=== PATIENT | male | born 1980 | race Caucasian/White ===

== ENCOUNTER 2023-01-23 11:55 | Outpatient (OUT) | payer OTHER, SELFPAY ==
--- NOTE | 2023-01-23 12:00 | XR_ITS ---
[address] [address] Patient Name: NIKI ROONEY MRN: [id number] date: 1980 Sex: M Assigned Patient Location: RAD Current Patient Location: [facility] Accession/Order Number: [id number] Exam Date: 01/23/2023 12:05 Report Date: 01/23/2023 12:23 At the request of: MICKI ARMSTRONG Procedure: XR cervical spine 2-3V EXAM: XR cervical spine 2-3V HISTORY: Chronic Neck Pain M54.2 COMPARISON: None. TECHNIQUE: 3 views FINDINGS: Satisfactory alignment. Maintained vertebral body heights. Multilevel endplate degenerative changes, anterior spurring and disc disease of C5-C7. No acute fracture or subluxation. Unremarkable soft tissues. XR/XR cervical spine 2-3V IMPRESSION: Degenerative changes disc disease as above. Electronically authenticated by: MAYNOR DIAZ Date: 01/23/2023 12:23
== END 2023-01-23 11:56 | disposition home or self-care (01) ==
LOC: RAD 11:55
PROVIDERS: PCP Family Medicine; Visit Provider Family Medicine
DX: M50.322 Other cervical disc degeneration at C5-C6 level (principal); M50.323 Other cervical disc degeneration at C6-C7 level
CPT/HCPCS: 72040

== ENCOUNTER 2023-02-23 10:06 | Outpatient (OUT) | payer OTHER, SELFPAY ==
[2023-02-23 10:43] LABS: Basophils Percent Auto 0.3 % (0.2-2.0); Eosinophils Absolute Auto 0.1 10^3/uL (0.0-0.7); Eosinophils Percent Auto 2.2 % (0.9-7.0); Hematocrit 37.9 % (42.0-54.0); Hemoglobin 13.1 g/dL (14.0-18.0); Immature Granulocytes Abs Auto 0.07 10^3/uL (0.00-0.03); Immature Granulocytes Pct Auto 1.2 % (0.0-0.5); Lymphocytes Absolute Auto 1.8 10^3/uL (1.2-3.8); Lymphocytes Percent Auto 29.9 % (20.5-60.0); Mean Corpuscular HGB Conc 34.6 g/dL (29.9-35.2); Mean Corpuscular Hemoglobin 31.4 pg (25.9-34.0); Mean Corpuscular Volume 90.9 fL (80.0-94.0); Monocytes Absolute Auto 0.5 10^3/uL (0.3-0.8); Monocytes Percent Auto 7.8 % (1.7-12.0); Neutrophils Absolute Auto 3.5 10^3/uL (1.4-6.5); Neutrophils Percent Auto 58.6 % (43.0-75.0); Platelet Count 147 10^3/uL (150-450); Red Blood Count 4.17 10^6/uL (4.70-6.10); Red Cell Distribution Width 12.4 % (11.0-15.0); White Blood Count 5.9 10^3/uL (4.0-11.0)
[2023-02-23 11:04] LABS: Estimated Average Glucose 120 mg/dL; Glycohemoglobin A1C 5.8 % (4.5-6.2)
[2023-02-23 12:07] LABS: Alanine Aminotransferase 35 U/L (16-63); Albumin Level 3.9 g/dL (3.4-5.0); Alkaline Phosphatase 48 U/L (46-116); Anion Gap 8.2; Aspartate Amino Transferase 19 U/L (15-37); BUN Creatinine Ratio 18.3; Bilirubin Direct 0.1 mg/dL (0.0-0.2); Bilirubin Total 0.3 mg/dL (0.2-1.0); Calcium 9.2 mg/dL (8.5-10.1); Chloride 99 mmol/L (98-107); Chol HDL Ratio 2.8; Cholesterol 156 mg/dL (<=200); Estimated GFR (African America >60 (>=60); Estimated GFR (Non-African Ame >60 (>=60); Globulin 3.9 g/dL; Glucose 95 mg/dL (74-106); HDL Cholesterol 56 mg/dL (40-60); LDL Cholesterol Calculated 84.8 mg/dL; Potassium 4.2 mmol/L (3.5-5.1); Sodium 134 mmol/L (136-145); Thyroid Stimulating Hormone 4.169 uIU/mL (0.358-3.740); Total Protein 7.8 g/dL (6.4-8.2); Triglycerides 76 mg/dL (<=150); VLDL CHOLESTEROL 15.2 mg/dL
[2023-02-23 12:14] LABS: Prostate Specific Antigen Scrn 0.74 ng/mL (<=4.00)
[2023-02-24 05:05] LABS: Testosterone 185 ng/dL (264-916)
== END 2023-02-23 10:07 | disposition home or self-care (01) ==
PROVIDERS: PCP Family Medicine; Visit Provider Family Medicine
DX: Z00.00 Encounter for general adult medical examination without abnormal findings (principal); Z12.5 Encounter for screening for malignant neoplasm of prostate
CPT/HCPCS: 36415; 80048; 80061; 80076; 83036; 84403; 84443; 85025; G0103

== ENCOUNTER 2023-04-11 13:32 | Outpatient (OUT) | payer OTHER, SELFPAY ==
--- NOTE | 2023-04-11 13:39 | XR_ITS ---
The [address] [address] Patient Name: NIKI ROONEY MRN: [id number] date: 1980 Sex: M Assigned Patient Location: RAD Current Patient Location: RAD Accession/Order Number: [id number] Exam Date: 04/11/2023 13:45 Report Date: 04/11/2023 14:38 At the request of: MICKI ARMSTRONG Procedure: XR foreign body eye EXAMINATION: XR foreign body eye HISTORY: Foreign Body Eye COMPARISON: No relevant comparison available. FINDINGS: ORBITS: Negative for a metallic foreign body. OTHER: Negative. XR/XR foreign body eye IMPRESSION: 1. No metallic foreign body within the orbits. Electronically authenticated by: SAURAV VILLEDA Date: 04/11/2023 14:38
--- NOTE | 2023-04-11 13:39 | XR_ITS ---
The [address] [address] Patient Name: NIKI ROONEY MRN: [id number] date: 1980 Sex: M Assigned Patient Location: [facility] Current Patient Location: Accession/Order Number: [id number] Exam Date: 04/11/2023 13:45 Report Date: 04/12/2023 14:58 At the request of: MICKI ARMSTRONG Procedure: XR cervical spine 2-3V EXAMINATION: XR cervical spine 2-3V HISTORY: Chronic Neck Pain COMPARISON: No relevant comparison available. FINDINGS: BONES: Straightening of the normal lordotic curvature; positioning versus muscle spasm. No fracture or spinal listhesis. No significant facet arthropathy. DISC SPACES: Mild narrowing C5-C6. Moderate narrowing C6-7. PARASPINOUS: Negative. No paraspinous abnormality is seen. OTHER: Negative. XR/XR cervical spine 2-3V IMPRESSION: 1. Grossly stable degenerative changes of the lower cervical spine. Electronically authenticated by: SAURAV VILLEDA Date: 04/12/2023 14:58
--- NOTE | 2023-04-11 14:00 | MR_ITS ---
The [address] [address] Patient Name: NIKI ROONEY MRN: [id number] date: 1980 Sex: M Assigned Patient Location: RAD Current Patient Location: [facility] Accession/Order Number: [id number] Exam Date: 04/11/2023 14:00 Report Date: 04/11/2023 15:16 At the request of: MICKI ARMSTRONG Procedure: MR cervical spine wo con MR cervical spine wo con, 04/11/2023 2:00 PM EDT INDICATION: Cervical Radiculopathy M54.12 COMPARISON: Prior x-ray dated 04/11/2023 TECHNIQUE: Multiplanar, multisequential MRI images of cervical spine were obtained with without contrast. FINDINGS: There is loss of normal physiologic cervical lordosis. The vertebral heights are relatively preserved. The cervicomedullary junction is unremarkable. No definite signal abnormality within the spinal cord is noted. There are moderate disc osteophyte complex associated with uncovertebral joint arthrosis from C3 to T1. No significant neuroforaminal narrowing or canal stenosis at the level of C2-C3 is noted. At the level of C3-C4, there is moderate bilateral neuroforaminal narrowing and no canal stenosis. At the level of C4-C5, there is mild right and severe left neuroforaminal narrowing and mild canal stenosis. At the level of C5-C6, there is severe bilateral neuroforaminal narrowing and mild canal stenosis. At the level of C6-C7, there is severe bilateral neuroforaminal narrowing and moderate canal stenosis. At the level of C7-T1, there is severe left and moderate right neuroforaminal narrowing and no canal stenosis. No definite muscular or ligamentous injury is noted. Mild mucosal thickening and retention cyst within the right maxillary sinus is noted. MR/MR cervical spine wo con IMPRESSION: Moderate degenerative changes of the cervical spine in particular at C5-C6 and C6-C7. Electronically authenticated by: SEBASTIAN FORD Date: 04/11/2023 15:16
== END 2023-04-11 13:33 | disposition home or self-care (01) ==
LOC: RAD 13:33
PROVIDERS: PCP Family Medicine; Visit Provider Family Medicine
DX: M54.2 Cervicalgia (principal); M54.12 Radiculopathy, cervical region; M51.36 Other intervertebral disc degeneration, lumbar region
CPT/HCPCS: 70030; 72040; 72141

== ENCOUNTER 2024-06-06 09:27 | Outpatient (OUT) | payer OTHER, SELFPAY ==
--- OUTSIDE RECORDS SUMMARY | 2024-06-06 09:48 | XMS_ITS | CCD ---
Author Organization [facility] Care Team Providers Care Insurance Investigator Name Role Phone DR FILIPPO ARMSTRONG Admitting Unavailable NATHANIEL, DR FILIPPO Tse Attending Unavailable NATHANIEL, DR FILIPPO Tse Primary Care Unavailable RONAL, DR SAURAV Huynh Consulting Unavailable NATHANIEL, DR FILIPPO Tse Consulting Unavailable Nathaniel GOOD, Filippo Primary Care Provider [phone] Filippo Armstrong MD Primary Care Provider Filippo Armstrong MD Unavailable FILIPPO ARMSTRONG Attending Unavailable NATHANIEL, FILIPPO Attending Unavailable SANTO GOLDMAN Attending Unavailable FILIPPO ARMSTRONG Referring Unavailable SNATO GOLDMAN Attending Unavailable NATHANIEL, FILIPPO Referring Unavailable SANTO GOLDMAN Attending Unavailable NATHANIEL, FILIPPO Referring Unavailable NATHANIEL, FILIPPO Attending Unavailable Medications Current Medications Medication Drug Class(es) Dates Sig (Normalized) Sig (Original) amitriptyline hydrochloride 25 mg oral tablet (14 sources) Tricyclic Antidepressant Start: 03-25-2020 take 1 tablet by mouth once daily as needed amitriptyline (ELAVIL) 25 mg tablet Take 25 mg by mouth nightly as needed. 0 03/25/2020 Active 24 hr amphetamine aspartate 7.5 mg / amphetamine sulfate 7.5 mg / dextroamphetamine saccharate 7.5 mg / dextroamphetamine sulfate 7.5 mg extended release oral capsule (20 sources) Central Nervous System Stimulant Start: 01-25-2024 End: 05-14-2024 take 1 tablet by mouth once daily amphetamine-dextr oamphetamine (Adderall) 30 MG tablet Indications: Attention deficit disorder (ADD) without hyperactivity Take 1 tablet (30 mg) by mouth Daily 30 tablet 02/07/2024 Active Start: 01-03-2024 End: 05-21-2024 take 1 capsule by mouth every twenty-four hours in the morning amphetamine-dextroamphetamine XR (Addera ll XR) 30 MG 24 hr capsule Indications: Attention deficit disorder (ADD) without hyperactivity Take 1 capsule (30 mg) by mouth in the morning. 30 capsule 05/21/2024 Active Start: 07-27-2023 take 1 capsule by mo uth every twenty-four hours in the morning amphetamine-dextroamphetamine XR (Addera ll XR) 30 MG 24 hr capsule Indications: Attention deficit disorder (ADD) without hyperactivity Take 1 capsule (30 mg) by mouth in the morning. 30 capsule 0 07/27/2023 Active Start: 01-23-2022 take 1 tablet by noelle th in the morning amphetamine-dextroamphetamine (Adderall) 30 MG tablet Indications: Attention deficit disorder (ADD) without hyperactivity Take 1 tablet (30 mg) by mouth in the morning. 30 tablet 0 07/09/2023 Active Start: 01-23-2022 End: 07-27-2023 take 1 capsule by mouth every twenty-four hours in the morning amphetamine-dextroamphetamine XR (Addera ll XR) 30 MG 24 hr capsule Indications: Attention deficit disorder (ADD) without hyperactivity Take 1 capsule (30 mg) by mouth in the morning. 30 capsule 0 06/27/2023 07/27/2023 Discontinued (Reorder) B-D 3CC LUER-JAYSHREE SYR 25GX1 25G X 1 3 ML misc (12 sources) Start: 08-11-2023 B-D 3CC LUER-L OK SYR 25GX1 25G X 1 3 ML misc 08/11/2023 Active baclofen 20 mg oral tablet (15 sources) gamma-Aminobuty debra Acid-ergic Agonist Start: 04-21-2024 End: 04-21-2024 take 1 tablet by mouth in the morning, then take 1 tablet by mouth in the evening, then take 1 tablet by mouth at bedtime baclofen (Lioresal) 20 MG tablet Indications: Degeneration of intervertebral disc of lumbar region with discogenic back pain and lower extremity pain Take 1 tablet (20 mg) by mouth in the morning and 1 tablet (20 mg) in the evening and 1 tablet (20 mg) before bedtime. 90 tablet 5 04/21/2024 Active take 1 tablet by noelle th in the morning, then take 1 tablet by mouth in the evening, then take 1 tablet by mouth at bedtime baclofen (Lioresal) 20 MG tablet Take 20 mg by mouth in the morning and 20 mg in the evening and 20 mg before bedtime. Active buprenorphine 8 mg / naloxone 2 mg sublingual tablet (14 sources) Partial Opioid Agonist, Opioid Antagonist buprenorphine-naloxo ne (Suboxone) 8-[address] 1 tablet under the tongue in the morning and 1 tablet before bedtime. Active buprenorphine-na loxone (SUBOXONE) 8-2 mg per SL tablet Place 1 tablet under the tongue in the morning. 0 Active furosemide 40 mg oral tablet (15 sources) Loop Diuretic Start: 04-08-2020 End: 02-05-2024 take 1 tablet by mouth once daily furosemide (Lasix) 40 MG tablet Indications: Generalized edema Take 1 tablet (40 mg) by mouth Daily 30 tablet 5 02/05/2024 Active gabapentin 800 mg oral tablet (1 source) Anti-epileptic Agent Start: 03-25-2020 take 1 tablet by mouth three times daily gabapentin (NEURONTIN) 800 mg tablet Take 800 mg by mouth 3 (three) times a day. 0 03/25/2020 Active levothyroxine sodium 0.05 mg oral tablet (13 sources) l-Thyroxine Start: 05-19-2024 take 1 tablet by mouth before mealtime levothyroxine (Synthroid, Levoxyl) 50 MCG tablet Indications: Acquired hypothyroidism (CMS/HCC) Take 1 tablet (50 mcg) by mouth in the morning. Take before meals. 30 tablet 5 05/19/2024 Active Start: 01-25-2024 take 1 tablet by noelle th before mealtime levothyroxine (Synthroid, Levoxyl) 50 MCG tablet Indications: Acquired hypothyroidism (CMS/HCC) Take 1 tablet (50 mcg) by mouth in the morning. Take before meals. 30 tablet 5 01/25/2024 Active Start: 07-11-2023 take 1 tablet by noelle th before mealtime levothyroxine (Synthroid, Levoxyl) 50 MCG tablet Indications: Acquired hypothyroidism (CMS/HCC) Take 1 tablet (50 mcg) by mouth in the morning. Take before meals. 30 tablet 5 07/11/2023 Active lisinopril 40 mg oral tablet (16 sources) Angiotensin Converting Enzyme Inhibitor Start: 07-11-2023 End: 04-21-2024 take 1 tablet by mouth once daily lisinopril 40 MG tablet Indications: Essential hypertension (CMS/HCC) Take 1 tablet (40 mg) by mouth Daily 30 tablet 5 04/21/2024 Active Start: 03-10-2020 take 1 tablet by noelle th in the morning lisinopriL (PRINIVIL,ZESTRIL) 20 mg tablet Take 20 mg by mouth in the morning. 0 03/10/2020 Active nabumetone 500 mg oral tablet (15 sources) Nonsteroidal Anti-inflammatory Drug Start: 01-23-2022 End: 05-21-2024 take 1 tablet by mouth in the morning nabumetone (Relafen) 500 MG tablet Indications: Degenerative cervical spinal stenosis Take 1 tablet (500 mg) by mouth in the morning and 1 tablet (500 mg) before bedtime. 60 tablet 5 07/11/2023 Active omeprazole 40 mg delayed release oral capsule (14 sources) Proton Pump Inhibitor Start: 09-24-2020 take 1 capsule by mouth before mealtime omeprazole (PriLOSEC) [address] capsule Indications: Gastroesophageal reflux disease without esophagitis Take 1 capsule (40 mg) by mouth in the morning. Take before meals. Do not crush or chew. . 30 capsule 5 07/11/2023 Active microencapsulated potassium chloride 20 meq extended release oral tablet (13 sources) Start: 07-11-2023 take 1 tablet by mouth in the morning potassium chloride CR (Klor-Con M20) 20 MEQ ER tablet Indications: Generalized edema Take 1 tablet (20 mEq) by mouth in the morning. Do not crush or chew. . 30 tablet 5 07/11/2023 Active pregabalin 200 mg oral capsule (15 sources) Start: 01-08-2024 End: 03-10-2024 take 1 capsule by mouth in the morning pregabalin (Lyrica) 200 MG capsule Indications: Degeneration of lumbar intervertebral disc Take 1 capsule (200 mg) by mouth in the morning and 1 capsule (200 mg) before bedtime. 60 capsule 2 03/10/2024 Active Start: 07-09-2023 take 1 capsule by mo uth in the morning pregabalin (Lyrica) 200 MG capsule Indications: Degeneration of lumbar intervertebral disc Take 1 capsule (200 mg) by mouth in the morning and 1 capsule (200 mg) before bedtime. 60 capsule 2 07/09/2023 Active sildenafil 100 mg oral tablet (14 sources) Phosphodiesterase 5 Inhibitor Start: 02-07-2024 take 1 tablet by mouth once daily as needed sildenafil (Viagra) 100 MG tablet Indications: Vasculogenic erectile dysfunction, unspecified vasculogenic erectile dysfunction type Take 1 tablet (100 mg) by mouth Daily as needed for erectile dysfunction 10 tablet 5 02/07/2024 Active Start: 02-01-2024 take 1 tablet by noelle th once daily as needed sildenafil (Viagra) 100 MG tablet Indications: Vasculogenic erectile dysfunction, unspecified vasculogenic erectile dysfunction type Take 1 tablet (100 mg) by mouth Daily as needed for erectile dysfunction 10 tablet 5 02/01/2024 Active Start: 07-27-2023 take 1 tablet by noelle th once daily as needed sildenafil (Viagra) 100 MG tablet Indications: Vasculogenic erectile dysfunction, unspecified vasculogenic erectile dysfunction type Take 1 tablet (100 mg) by mouth Daily as needed for erectile dysfunction 10 tablet 5 07/27/2023 Active Start: 07-11-2023 End: 07-27-2023 take 1 tablet by mouth once daily as needed sildenafil (Viagra) 25 MG tablet Indications: Vasculogenic erectile dysfunction, unspecified vasculogenic erectile dysfunction type Take 1 tablet (25 mg) by mouth Daily as needed for erectile dysfunction 10 tablet 3 07/11/2023 07/27/2023 Discontinued (Reorder) 1 ml testosterone cypionate 200 mg/ml injection (14 sources) Androgen Start: 01-25-2024 End: 02-14-2024 testosterone cypionate (Depo-Testosterone) 200 MG/ML injection Indications: Male hypogonadism Inject 0.5 mL (100 mg) into the shoulder, thigh, or buttocks every 14 (fourteen) days 3 mL 2 02/14/2024 Active Start: 07-16-2023 testosterone c ypionate (Depo-Testosterone) 200 MG/ML injection Indications: Male hypogonadism Inject 0.5 mL (100 mg) into the shoulder, thigh, or buttocks every 14 (fourteen) days 3 mL 2 07/16/2023 Active Problems Active Problems Problem Classification Problem Date Documented Date Episodic/Chronic Anxiety disorders (12 sources) Generalized anxiety disorder; Translations: [Generalized anxiety disorder] Onset: 10-31-2023 10-31-2023 Chronic Disorders usually diagnosed in infancy, childhood, or adolescence (20 sources) Attention deficit hyperactivity disorder, predominantly inattentive type; Translations: [Other specified behavioral and emotional disorders with onset usually occurring in childhood and adolescence] Onset: 10-07-2020 07-27-2023 Chronic Esophageal disorders (13 sources) Gastroesophageal reflux disease without esophagitis; Translations: [Gastro-esophageal reflux disease without esophagitis] Onset: 10-07-2020 05-23-2023 Chronic Essential hypertension (15 sources) Essential hypertension; Translations: [Essential (primary) hypertension] Onset: 10-07-2020 05-23-2023 Chronic Gout and other crystal arthropathies (13 sources) Gout; Translations: [Gout, unspecified] Onset: 03-25-2020 05-23-2023 Chronic Mood disorders (20 sources) Recurrent major depression in partial remission; Translations: [Major depressive disorder, recurrent, in partial remission] Onset: 10-07-2020 Resolved: 10-31-2023 05-23-2023 Chronic Other endocrine disorders (16 sources) Male hypogonadism; Translations: [Testicular hypofunction] Onset: 05-24-2023 05-24-2023 Chronic Other male genital disorders (14 sources) Vasculopathic erectile dysfunction; Translations: [Male erectile dysfunction, unspecified] Onset: 07-11-2023 07-27-2023 Chronic Other non-traumatic joint disorders (4 sources) Pain in right shoulder; Translations: [PAIN IN RIGHT SHOULDER] Onset: 12-08-2021 Episodic Other nutritional; endocrine; and metabolic disorders (7 sources) Severe obesity; Translations: [Class 2 severe obesity due to excess calories with serious comorbidity and body mass index (BMI) of 37.0 to 37.9 in adult ([facility])] Onset: 04-21-2024 04-21-2024 Chronic Residual codes; unclassified (13 sources) Sleep apnea; Translations: [Sleep apnea, unspecified] Onset: 10-07-2020 05-23-2023 Chronic Spondylosis; intervertebral disc disorders; other back problems (17 sources) Degeneration of lumbar intervertebral disc; Translations: [Other intervertebral disc degeneration, lumbar region] Onset: 05-24-2023 05-24-2023 Chronic Substance-related disorders (13 sources) Opioid abuse; Translations: [Opioid abuse, uncomplicated] Onset: 05-24-2023 05-24-2023 Chronic Thyroid disorders (15 sources) Acquired hypothyroidism; Translations: [Hypothyroidism, unspecified] Onset: 05-24-2023 05-24-2023 Chronic Past or Other Problems Problem Classification Problem Date Documented Da te Episodic/Chronic Other connective tissue disease (13 sources) Spasm of cervical paraspinous muscle; Translations: [Other muscle spasm] Onset: 11-17-2022 11-17-2022 Episodic Other connective tissue disease (13 sources) Diastasis recti; Translations: [Separation of muscle (nontraumatic), other site] Onset: 05-24-2023 05-24-2023 Episodic Other connective tissue disease (13 sources) Plantar fasciitis; Translations: [Plantar fascial fibromatosis] Onset: 05-24-2023 05-24-2023 Episodic Other non-traumatic joint disorders (13 sources) Chronic pain of right upper limb; Translations: [Pain in right shoulder] Onset: 05-24-2023 05-24-2023 Episodic Residual codes; unclassified (16 sources) Edema, generalized; Translations: [Generalized edema] Onset: 07-11-2023 07-11-2023 Episodic Spondylosis; intervertebral disc disorders; other back problems (20 sources) Right cervical root neuropathy; Translations: [Radiculopathy, cervical region] Onset: 11-17-2022 11-17-2022 Episodic Results Test Name Value Interpretation Reference Range Facil ity MRI SHOULDER RT WO CONon MRI SHOULDER RT WO CON EXAMINATION: MRI SHOULDER RT WO CON HISTORY: Pain of right shoulder joint ; acute exacerbation of chronic right shoulder pain COMPARISON: No relevant comparison available. TECHNIQUE: A variety of imaging planes and parameters were utilized for visualization of suspected pathology. Imaging was performed without contrast. FINDINGS: ROTATOR CUFF REGION CUFF TENDONS: Thickening and prominent T2 signal of the supraspinatus tendon consistent with high-grade strain versus partial tear. CUFF MUSCLES: Normal appearing muscles. DELTOID: Normal. No significant atrophy or tear. LONG BICEPS TENDON: Normal. No abnormal signal, attrition, or tear. LABRUM/BICEPS ANCHOR SUPERIOR: Normal. No visible labral tear or biceps anchor pathology. ANTERIOR/INFERIOR: Normal. No visible tear or attrition. POSTERIOR: Normal. No posterior labrum abnormality. CAPSULE Normal. No visible capsular laxity or thickening. AC JOINT REGION AC JOINT: Moderate osteoarthropathy with mild-moderate narrowing of the underlying coracoacromial arch. AC LIGAMENTS: Normal acromioclavicular ligament. CC LIGAMENTS: Normal coracoclavicular ligaments. ACROMION: Slight lateral downsloping. SUBACROMIAL BURSA: Small amount of free fluid within bursa. HYALINE CARTILAGE: Normal. No visible cartilage narrowing or focal defect. OTHER BONES: Normal proximal humerus, glenoid, and coracoid. OTHER OBSERVATIONS: Negative. No other significant findings or glenohumeral effusion. IMPRESSION: 1. Marked strain versus partial tear the supraspinatus tendon. Fluid within the subacromial-subdeltoid bursa suggests at least a focal area of full-thickness tear. 2. Moderate degenerative changes of the acromioclavicular joints with undersurface osteophytes resulting in mild-moderate impingement of the underlying superior rotator cuff. Electronically authenticated by: SAURAV VILLEDA Date: 2021-12-09 07:16 Normal [facility] Vital Signs Date Time Vital Sign Value Performing Clinician Faci lity 04-21-2024 14:15-050 Body height 175.3 cm Filippo Armstrong MD Work Phone: [facility] 04-21-2024 14:15-0500 Body mass index (BMI) [Ratio] 37.21 kg/m2 Filippo Armstrong MD Work Phone: [facility] 04-21-2024 14:15-0500 Body temperature 96.6 [degF] Filippo Armstrong MD Work Phone: [facility] 04-21-2024 14:15-050 Body weight 114.31 kg Filippo Armstrong MD Work Phone: [facility] 04-21-2024 14:15-0500 Diastolic blood pressure 80 mm[Hg] Filippo Armstrong MD Work Phone: [facility] 04-21-2024 14:15-0500 Heart rate 83 /min Filippo Armstrong MD Work Phone: [facility] 04-21-2024 14:15-0500 Respiratory rate 22 /min Filippo Armstrong MD Work Phone: [facility] 04-21-2024 14:15-0500 SaO2% (BldA) [Mass fraction] 96 % Filippo Armstrong MD Work Phone: [facility] 04-21-2024 14:15-0500 Systolic blood pressure 154 mm[Hg] Filippo Armstrong MD Work Phone: [facility] Encounters Encounter Date Encounter Type Care Provider Facility Start: 06-02-2024 End: 06-02-2024 Telephone encounter Filippo Armstrong MD Work Phone: [facility] Start: 05-21-2024 End: 05-21-2024 Refill Filippo Armstrong MD Work Phone: [facility] Comment on above: Attention deficit di sorder (ADD) without hyperactivity; Degenerative cervical spinal stenosis Start: 05-14-2024 End: 05-14-2024 Refill Filippo Armstrong MD Work Phone: [facility] Comment on above: Attention deficit di sorder (ADD) without hyperactivity Start: 04-21-2024 End: 04-21-2024 Office outpatient visit 25 minutes Filippo Armstrong MD Work Phone: [facility] Comment on above: Essential hypertensi on (CMS/HCC) (Primary Dx); Degeneration of intervertebral disc of lumbar region with discogenic back pain and lower extremity pain; Attention deficit disorder (ADD) without hyperactivity; Male hypogonadism; Acquired hypothyroidism (CMS/HCC); Generalized edema; Major depressive disorder, recurrent episode, moderate (CMS/HCC); Annual physical exam; Class 2 severe obesity due to excess calories with serious comorbidity and body mass index (BMI) of 37.0 to 37.9 in adult (CMS/HCC) Start: 04-21-2024 End: 04-21-2024 Orders Only Filippo Armstrong MD Work Phone: [facility] Comment on above: Attention deficit di sorder (ADD) without hyperactivity Start: 04-21-2024 End: 04-21-2024 Patient encounter procedure Filippo Armstrong MD Work Phone: [facility] Start: 03-31-2024 End: 03-31-2024 Orders Only Filippo Armstrong MD Work Phone: [facility] Comment on above: Attention deficit di sorder (ADD) without hyperactivity Start: 03-10-2024 End: 03-10-2024 Orders Only Filippo Armstrong MD Work Phone: [facility] Comment on above: Degeneration of lumb ar intervertebral disc; Attention deficit disorder (ADD) without hyperactivity Start: 02-14-2024 End: 02-14-2024 Refill Filippo Armstrong MD Work Phone: [facility] Comment on above: Male hypogonadism Start: 02-07-2024 End: 02-07-2024 Refill Filippo Armstrong MD Work Phone: [facility] Comment on above: Attention deficit di sorder (ADD) without hyperactivity Start: 02-05-2024 End: 02-05-2024 Orders Only Filippo Armstrong MD Work Phone: [facility] Comment on above: Generalized edema; Degeneration of lumbar intervertebral disc Start: 02-04-2024 End: 02-04-2024 Refill Filippo Armstrong MD Work Phone: [facility] Comment on above: Attention deficit di sorder (ADD) without hyperactivity Start: 01-30-2024 End: 01-30-2024 ambulatory SANTO B SUSI Not Available Start: 12-12-2023 End: 12-12-2023 ambulatory SANTO Dennison SUSI Not Available Start: 12-05-2023 End: 12-05-2023 ambulatory SANTO B SUSI Not Available Start: 10-31-2023 End: 10-31-2023 ambulatory FILIPPO ARMSTRONG Not Available Start: 08-30-2023 Telephone encounter [facility] Work Phone: [facility] Start: 07-20-2023 Orders Only Filippo Dawn Work Phone: [facility] Comment on above: Attention deficit di sorder (ADD) without hyperactivity; Vasculogenic erectile dysfunction, unspecified vasculogenic erectile dysfunction type Start: 07-11-2023 End: 07-11-2023 ambulatory FILIPPO ARMSTRONG Not Available Start: 12-08-2021 End: 12-09-[address] FILIPPO ARMSTRONG Facility:[facility] Plan of Treatment Date Care Activity Detail Author Start: 07-22-2024 End: 07-22-2024 Patient encounter procedure 07/22/2024 10:45 AM EST Office Visit [facility] [address] [place] [phone] Filippo Armstrong MD [address] [place] [phone] [facility] Start: 04-21-2024 End: 04-21-2025 Basic metabolic 1998 panel - Serum or Plasma Basic metabolic panel Lab Routine Annual physical exam Expected: 04/21/2024 (Approximate), Expires: 04/21/2025 [facility] Comment on above: Expected: 04/21/2024 (Approximate), Expires: 04/21/2025 Start: 04-21-2024 End: 04-21-2025 CBC W Auto Differential panel - Blood CBC and differential Lab Routine Annual physical exam Expected: 04/21/2024 (Approximate), Expires: 04/21/2025 [facility] Comment on above: Expected: 04/21/2024 (Approximate), Expires: 04/21/2025 Start: 04-21-2024 End: 04-21-2025 Hemoglobin A1c/Hemoglobin.total in Blood Hemoglobin A1c Lab Routine Annual physical exam Expected: 04/21/2024 (Approximate), Expires: 04/21/2025 [facility] Work Phone: Comment on above: Expected: 04/21/2024 (Approximate), Expires: 04/21/2025 Start: 04-21-2024 End: 04-21-2025 Hepatic function 2000 panel - Serum or Plasma Hepatic function panel Lab Routine Annual physical exam Expected: 04/21/2024 (Approximate), Expires: 04/21/2025 [facility] Comment on above: Expected: 04/21/2024 (Approximate), Expires: 04/21/2025 Start: 04-21-2024 End: 04-21-2025 Lipid 1996 panel - Serum or Plasma Lipid panel Lab Routine Annual physical exam Expected: 04/21/2024 (Approximate), Expires: 04/21/2025 [facility] Comment on above: Expected: 04/21/2024 (Approximate), Expires: 04/21/2025 Start: 04-21-2024 End: 04-21-2025 Magnesium [Mass/volume] in Serum or Plasma Magnesium Lab Routine Annual physical exam Expected: 04/21/2024 (Approximate), Expires: 04/21/2025 [facility] Comment on above: Expected: 04/21/2024 (Approximate), Expires: 04/21/2025 Start: 04-21-2024 End: 04-21-2024 Patient encounter procedure 04/21/2024 2:00 PM EST Office Visit [facility] [address] [place] [phone] Filippo Armstrong MD [address] [place] [address] [facility] Start: 04-21-2024 End: 04-21-2025 Prostate specific Ag [Mass/volume] in Serum or Plasma PSA Lab Routine Annual physical exam Expected: 04/21/2024 (Approximate), Expires: 04/21/2025 [facility] Comment on above: Expected: 04/21/2024 (Approximate), Expires: 04/21/2025 Start: 04-21-2024 End: 04-21-2025 Thyrotropin [Units/volume] in Serum or Plasma TSH Lab Routine Annual physical exam Expected: 04/21/2024 (Approximate), Expires: 04/21/2025 [facility] Comment on above: Expected: 04/21/2024 (Approximate), Expires: 04/21/2025 Start: 04-21-2024 End: 04-21-2025 Thyroxine (T4) free [Mass/volume] in Serum or Plasma T4, free Lab Routine Acquired hypothyroidism (CMS/HCC) Expected: 04/21/2024 (Approximate), Expires: 04/21/2025 [facility] Comment on above: Expected: 04/21/2024 (Approximate), Expires: 04/21/2025 Start: 04-21-2024 End: 04-21-2025 XR Lumbar spine 2 or 3 Views XR lumbar spine 2 or 3 views Imaging Routine Degeneration of intervertebral disc of lumbar region with discogenic back pain and lower extremity pain Expected: 04/21/2024, Expires: 04/21/2025 [facility] Comment on above: Expected: 04/21/2024 , Expires: 04/21/2025 Start: 02-17-2024 Influenza vaccination Influenza Vacc ine (#1) [facility] Start: 10-16-2023 End: 10-16-2023 Patient encounter procedure 10/16/2023 3:30 PM EDT Office Visit [facility] [address] [place] [phone] Filippo Armstrong MD [address] [place] [phone] [facility] Start: 02-22-2023 Adult BMI Screening Adult BMI Screen ing [facility] Start: 02-22-2023 Tobacco Screening Tobacco Screening [facility] Start: 02-16-2023 Influenza vaccination [facility] Start: 1998 DTaP,Tdap and Td Vaccines (1 - Tdap) DTaP,Tdap and Td Vaccines (1 - Tdap) [facility] Start: 1991 Depression Screening Depression Scre ening [facility] Start: 1979 Screening for malign ant neoplasm of colon [facility] Healthcare Payers Date Payer Category Payer Medicaid [id number] 2020 Medicaid (Managed Care) ADAM MACIEL [id number] 2020 [facility] [id number] 2020-Present [phone] [address] [address] [place] [address] [id number] 1979 Unknown [id number] 593 1979 Unknown [id number]. 1259 1979 Unknown [id number] 9 1979 Unknown [id number]. 1259 1979 Unknown [id number]. 9 1979 Unknown [id number]. 1259 1979 Unknown [id number]. 1259 1959 Unknown [id number] Social History Date Type Detail Facility Start: 11-03-2019 End: 07-11-2023 Tobacco smoking status [facility] Never smoked tobacco [facility] Start: 11-03-2019 End: 07-11-2023 Tobacco use and exposure Smokeless tobacco non-user [facility] Start: 07-11-2023 End: 10-31-2023 History of Social function [facility] Start: 07-11-2023 End: 10-31-2023 Tobacco use panel [facility] Start: 1980 Sex Assigned At Not on file [facility] Start: 02-23-2022 Alcohol intake Current drinke r of alcohol (finding) [facility] Unknown [facility] Start: 02-01-2022 Alcohol Comment social [facility] Medical Equipment Procedure Code Equipment Code Equipment Origin al Text Equipment Identifier Dates Minitape [id number] Start: 02-22-2022 Clinical Notes 08-30-2023 to 06-02-2024 Telephone Encounter - Filippo Armstrong MD - 06/02/2024 2:53 PM ESTTelephone Encounter - Filippo Armstrong MD - 06/02/2024 2:53 PM ESTFilippo Armstrong MD - 04/21/2024 3:35 PM EST Note Date & Type Note Facility 06-02-2024 Telephone encount er Note Patient needs a note for disability. Please write letter stating patient is medically disabled and not able to work due to his medical condition. The patient is treated for cervical spinal stenosis and lumbar degenerative disc disease. [facility] 06-02-2024 Miscellaneous Notes Formattin g of this note might be different from the original. Patient needs a note for disability. Please write letter stating patient is medically disabled and not able to work due to his medical condition. The patient is treated for cervical spinal stenosis and lumbar degenerative disc disease. documented in this encounter [facility] 04-21-2024 History of Presen t illness Narrative Associated Problem(s): Class 2 severe obesity due to excess calories with serious comorbidity and body mass index (BMI) of 37.0 to 37.9 in adult ([facility]) Weight loss indicated Associated Problem(s): Major depressive disorder, recurrent episode, moderate ([facility]) Continued symptoms but wants to avoid SSRIs. Monitor. Associated Problem(s): Generalized edema Edema stable and continue lasix. Elevate legs PRN. Associated Problem(s): Essential hypertension (CMS/HCC) BP elevated but out of lisinopril. Monitor PRN. Discussed DASH diet. Associated Problem(s): Degeneration of lumbar intervertebral disc Worsening pain and check x-ray. Resume PT. Likely will need MRI. Associated Problem(s): Attention deficit disorder (ADD) without hyperactivity Symptoms controlled with adderall and continue. Images from the original note were not included. Subjective Patient ID: Davidson Horowitz is a 44 y.o. male who presents for Follow-up (6 m) and Back Pain (Getting worse). Follow up HTN, back pain, neck pain, ADD, edema, and depression. Checking BP PRN and typically controlled. BP elevated today but out of lisinopril. Taking medication daily and tolerating without side effects. Neck pain unchanged. Continued pain in base neck and top shoulders. Pain radiates down both arms into hands. 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 MRI showed moderate degenerative changes and narrowing. Referred to [facility] and waiting to schedule. Back pain getting worse. Pain in mid low back and across top hips. Pain into right gluteal region and down right leg. Pain to raise leg. Occasional tightness and spasms. Went to PT and not helping. ADD controlled with medication. Able to stay focused and complete work. Not distracted or watching others. Able to stay organized and finish tasks. Depression unchanged. Upset with pain and limited ability to work. Not able to keep a job and owes back child support. Not able to see his kids. Doesn't want medication for symptoms. Edema controlled with medication. Mild swelling at end of day and if on feet a lot. Edema improved in am and with elevation. Review of Systems Constitutional: Negative for fatigue. Respiratory: Negative for cough, shortness of breath and wheezing. Cardiovascular: Negative for chest pain and palpitations. Gastrointestinal: Negative for abdominal pain, diarrhea, nausea and vomiting. Genitourinary: Negative for dysuria. Objective Physical Exam Constitutional: General: He is not in acute distress. Appearance: Normal appearance. HENT: Head: Normocephalic. Right Ear: Tympanic membrane and ear canal normal. Left Ear: Tympanic membrane and ear canal normal. Eyes: Extraocular Movements: Extraocular movements intact. Pupils: Pupils are equal, round, and reactive to light. Cardiovascular: Rate and Rhythm: Normal rate and regular rhythm. Heart sounds: No murmur heard. No friction rub. No gallop. Pulmonary: Breath sounds: Normal breath sounds. No wheezing, rhonchi or rales. Abdominal: General: Bowel sounds are normal. There is no distension. Palpations: Abdomen is soft. Tenderness: There is no abdominal tenderness. There is no guarding or rebound. Musculoskeletal: Left lower leg: No edema. Neurological: Mental Status: He is alert. Assessment/Plan Problem List Items Addressed This Visit Attention deficit disorder (ADD) without hyperactivity Symptoms controlled with adderall and continue. Essential hypertension (CMS/HCC) - Primary BP elevated but out of lisinopril. Monitor PRN. Discussed DASH diet. Relevant Medications lisinopril 40 MG tablet Degeneration of lumbar intervertebral disc Worsening pain and check x-ray. Resume PT. Likely will need MRI. Relevant Medications baclofen (Lioresal) 20 MG tablet Other Relevant Orders XR lumbar spine 2 or 3 views Male hypogonadism Acquired hypothyroidism (CMS/HCC) Relevant Orders T4, free Major depressive disorder, recurrent episode, moderate (CMS/HCC) Continued symptoms but wants to avoid SSRIs. Monitor. Generalized edema Edema stable and continue lasix. Elevate legs PRN. Annual physical exam Relevant Orders Hemoglobin A1c Basic metabolic panel CBC and differential Hepatic function panel Lipid panel Magnesium PSA TSH documented in this encounter [facility] 08-30-2023 Miscellaneous Notes Formattin g of this note might be different from the original. Received faxed referral for patient to be seen for Cervical. Office not contracted with patient's insurance, [place] [employer] [place]. Left voice message at MA line at referring providers office informing. Unable to reach patient, no answer or voicemail. [facility] Tele[facility] encount er Note Received faxed referral for patient to be seen for Cervical. Office not contracted with patient's insurance, [place] [employer] [place]. Left voice message at MA line at referring providers office informing. Unable to reach patient, no answer or voicemail. 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, unspecified vasculogenic erectile dysfunction type [facility] Diagnosis Essential hypertension (CMS/HCC)- Primary Unspecified essential hypertension Degenerative cervical spinal stenosis Spinal stenosis in cervical region Degeneration of lumbar intervertebral disc Degeneration of lumbar or lumbosacral intervertebral disc Attention deficit disorder (ADD) without hyperactivity Generalized edema Edema Gastroesophageal reflux disease without esophagitis Esophageal reflux Acquired hypothyroidism (CMS/HCC) Unspecified hypothyroidism Vasculogenic erectile dysfunction, unspecified vasculogenic erectile dysfunction type Essential hypertension (CMS/HCC)- Primary Unspecified essential hypertension Degeneration of lumbar intervertebral disc Degeneration of lumbar or lumbosacral intervertebral disc Degenerative cervical spinal stenosis Spinal stenosis in cervical region Attention deficit disorder (ADD) without hyperactivity Major depressive disorder, recurrent episode, moderate (CMS/HCC) Major depressive disorder, recurrent episode, moderate ESTHER (generalized anxiety disorder) (CMS/HCC) Generalized anxiety disorder Male hypogonadism Other testicular hypofunction Opioid abuse, uncomplicated (F11.10) Attention deficit disorder (ADD) without hyperactivity [facility] Diagnosis Essential hypertension (CMS/HCC)- Primary Unspecified essential hypertension Degenerative cervical spinal stenosis Spinal stenosis in cervical region Degeneration of lumbar intervertebral disc Degeneration of lumbar or lumbosacral intervertebral disc Attention deficit disorder (ADD) without hyperactivity Generalized edema Edema Gastroesophageal reflux disease without esophagitis Esophageal reflux Acquired hypothyroidism (CMS/HCC) Unspecified hypothyroidism Vasculogenic erectile dysfunction, unspecified vasculogenic erectile dysfunction type Essential hypertension (CMS/HCC)- Primary Unspecified essential hypertension Degeneration of lumbar intervertebral disc Degeneration of lumbar or lumbosacral intervertebral disc Degenerative cervical spinal stenosis Spinal stenosis in cervical region Attention deficit disorder (ADD) without hyperactivity Major depressive disorder, recurrent episode, moderate (CMS/HCC) Major depressive disorder, recurrent episode, moderate ESTHER (generalized anxiety disorder) (CMS/HCC) Generalized anxiety disorder Male hypogonadism Other testicular hypofunction Opioid abuse, uncomplicated (F11.10) Essential hypertension (CMS/HCC)- Primary Unspecified essential hypertension Degeneration of intervertebral disc of lumbar region with discogenic back pain and lower extremity pain Attention deficit disorder (ADD) without hyperactivity Male hypogonadism Other testicular hypofunction Acquired hypothyroidism (CMS/HCC) Unspecified hypothyroidism Generalized edema Edema Major depressive disorder, recurrent episode, moderate (CMS/HCC) Major depressive disorder, recurrent episode, moderate Annual physical exam Routine general medical examination at a health care facility Class 2 severe obesity due to excess calories with serious comorbidity and body mass index (BMI) of 37.0 to 37.9 in adult ([facility]) [facility] Diagnosis Essential hypertension ([facility])- Primary Unspecified essential hypertension Degenerative cervical spinal stenosis Spinal stenosis in cervical region Degeneration of lumbar intervertebral disc Degeneration of lumbar or lumbosacral intervertebral disc Attention deficit disorder (ADD) without hyperactivity Generalized edema Edema Gastroesophageal reflux disease without esophagitis Esophageal reflux Acquired hypothyroidism ([facility]) Unspecified hypothyroidism Vasculogenic erectile dysfunction, unspecified vasculogenic erectile dysfunction type Essential hypertension ([facility]/HCC)- Primary Unspecified essential hypertension Degeneration of lumbar intervertebral disc Degeneration of lumbar or lumbosacral intervertebral disc Degenerative cervical spinal stenosis Spinal stenosis in cervical region Attention deficit disorder (ADD) without hyperactivity Major depressive disorder, recurrent episode, moderate ([facility]) Major depressive disorder, recurrent episode, moderate ESTHER (generalized anxiety disorder) (CMS/HCC) Generalized anxiety disorder Male hypogonadism Other testicular hypofunction Opioid abuse, uncomplicated (F11.10) Essential hypertension (CMS/HCC)- Primary Unspecified essential hypertension Degeneration of intervertebral disc of lumbar region with discogenic back pain and lower extremity pain Attention deficit disorder (ADD) without hyperactivity Male hypogonadism Other testicular hypofunction Acquired hypothyroidism (CMS/HCC) Unspecified hypothyroidism Generalized edema Edema Major depressive disorder, recurrent episode, moderate ([facility]) Major depressive disorder, recurrent episode, moderate Annual physical exam Routine general medical examination at a health care facility Class 2 severe obesity due to excess calories with serious comorbidity and body mass index (BMI) of 37.0 to 37.9 in adult ([facility]) Attention deficit disorder (ADD) without hyperactivity [facility] Diagnosis Essential hypertension ([facility])- Primary Unspecified essential hypertension Degenerative cervical spinal stenosis Spinal stenosis in cervical region Degeneration of lumbar intervertebral disc Degeneration of lumbar or lumbosacral intervertebral disc Attention deficit disorder (ADD) without hyperactivity Generalized edema Edema Gastroesophageal reflux disease without esophagitis Esophageal reflux Acquired hypothyroidism ([facility]) Unspecified hypothyroidism Vasculogenic erectile dysfunction, unspecified vasculogenic erectile dysfunction type Essential hypertension ([facility])- Primary Unspecified essential hypertension Degeneration of lumbar intervertebral disc Degeneration of lumbar or lumbosacral intervertebral disc Degenerative cervical spinal stenosis Spinal stenosis in cervical region Attention deficit disorder (ADD) without hyperactivity Major depressive disorder, recurrent episode, moderate ([facility]) Major depressive disorder, recurrent episode, moderate ESTHER (generalized anxiety disorder) ([facility]) Generalized anxiety disorder Male hypogonadism Other testicular hypofunction Opioid abuse, uncomplicated (F11.10) Essential hypertension ([facility])- Primary Unspecified essential hypertension Degeneration of intervertebral disc of lumbar region with discogenic back pain and lower extremity pain Attention deficit disorder (ADD) without hyperactivity Male hypogonadism Other testicular hypofunction Acquired hypothyroidism ([facility]) Unspecified hypothyroidism Generalized edema Edema Major depressive disorder, recurrent episode, moderate ([facility]) Major depressive disorder, recurrent episode, moderate Annual physical exam Routine general medical examination at a health care facility Class 2 severe obesity due to excess calories with serious comorbidity and body mass index (BMI) of 37.0 to 37.9 in adult ([facility]) Attention deficit disorder (ADD) without hyperactivity Degenerative cervical spinal stenosis Spinal stenosis in cervical region [facility] Diagnosis Attention deficit disorder (ADD) without hyperactivity [facility] Diagnosis Generalized edema Edema Degeneration of lumbar intervertebral disc Degeneration of lumbar or lumbosacral intervertebral disc [facility]* Diagnosis Male hypogonadism Other testicular hypofunction [facility]* Diagnosis Degeneration of lumbar intervertebral disc Degeneration of lumbar or lumbosacral intervertebral disc Attention deficit disorder (ADD) without hyperactivity documented in this encounter [facility]ructionsNot on filedocumented in this [facility] Summary Purpose Family History No Family History Records FoundNo Family History Records Found Advance Directives No Advanced Directives Records FoundNo Advanced Directives Records Found Reason for Referral Specialty Diagnoses / Procedures Referred By Contac t Referred To Contact Diagnoses Attention deficit disorder (ADD) without hyperactivity Filippo Armstrong MD [address] [place] [address] Referral ID Status Reason Start Date Expiration Date Visits Re quested Visits Authorized [id number] Closed 1 1 Referral ID Status Reason Start Date Expiration Date V isits Requested Visits Authorized [id number] Pending Review 02/04/2024 08/02/2024 1 1 Referral ID Status Reason Start Date Expiration Date V isits Requested Visits Authorized [id number] Pending Review 02/07/2024 08/05/2024 1 1 Specialty Diagnoses / Procedures Referred By Contac t Referred To Contact Diagnoses Male hypogonadism Filippo Armstrong MD [address] [place] [address] Referral ID Status Reason Start Date Expiration Date V isits Requested Visits Authorized [id number] Pending Review 02/14/2024 08/12/2024 1 1 Referral ID Status Reason Start Date Expiration Date V isits Requested Visits Authorized [id number] Pending Review 1 1 Additional Source Comments (unrecognized sect ion and content) No Status Records FoundNo Status Records Found INFORMATION SOURCE (unrecogn ized section and content) DATE CREATED AUTHOR 12/14/2021 [facility] DATE CREATED AUTHOR AUTHOR'S ORGANIZ ATION 04/22/2024 [facility] Care Teams (unrecognized sec tion and content) Insurance Investigator Relationship Specialty Start Date End Date Filippo Armstrong MD [address] [place] [phone] PCP - General Family Medicine 07/11/23 Insurance Investigator Relationship Specialty Start Date End Date Filippo Armstrong MD [address], [place] [id number] PCP - General Family Medicine 08/31/19 Insurance Investigator Relationship Specialty Start Date End Date Filippo Armstrong MD [address] [place] [phone] PCP - [facility] 07/11/23 Filippo Armstrong MD [address] [place] [address] [facility] 12/17/23 Insurance Investigator Relationship Specialty Start Date End Date Filippo Armstrong MD [address] [place] [address] [facility] 07/11/23 Filippo Armstrong MD [address] [place] [address] [facility] 12/17/23 Insurance Investigator Relationship Specialty Start Date End Date Filippo Armstrong MD [address] [place] [phone] [facility] 07/11/23 Filippo Armstrong MD [address] [place] [address] [facility] 12/17/23 Insurance Investigator Relationship Specialty Start Date End Date Filippo Armstrong MD [address] [place] [address] [facility] 07/11/23 Filippo Armstrong MD [address] [place] [address] [facility] 12/17/23 Insurance Investigator Relationship Specialty Start Date End Date Filippo Armstrong MD [address] [place] [phone] PCP - [facility] 07/11/23 Filippo Armstrong MD [address] [place] [address] [facility] 12/17/23 Insurance Investigator Relationship Specialty Start Date End Date Filippo Armstrong MD [address] [place] [phone] PCP [facility] 07/11/23 Filippo Armstrong MD [address] [place] [address] [facility] 12/17/23 Insurance Investigator Relationship Specialty Start Date End Date Filippo Armstrong MD [address] [place] [phone] PCP [facility] 07/11/23 Filippo Armstrong MD [address] [place] [address] [facility] 12/17/23 Insurance Investigator Relationship Specialty Start Date End Date Filippo Armstrong MD [address] [place] [phone] PCP [facility] 07/11/23 Filippo Armstrong MD [address] [place] [address] PCP - [facility] 12/17/23 Reason for Visit (unrecogniz ed section and content) Reason Comments Follow-up 6 m Back Pain Getting worse Reason Onset Date Comments Med Refill 05/14/2024 Reason Onset Date Comments Med Refill 05/21/2024 Reason Onset Date Comments Med Refill 02/04/2024 Reason Onset Date Comments Med Refill 02/07/2024 Reason Onset Date Comments Med Refill 02/14/2024 FOR RECORDS PERTAINING TO PATIENTS WHO ARE OR HAVE BEEN ENROLLED IN A CHEMICAL DEPENDENCY/SUBSTANCEABUSE PROGRAM, SOME INFORMATION MAY BE OMITTED. This clinical summary was aggregated from multiple sources. Caution should be exercised in using it in the provision of clinical care. This summary normalizes information from multiple sources, and as a consequence, information in this document may materially change the coding, format and clinical context of patient data. In addition, data may be omitted in some cases. CLINICAL DECISIONS SHOULD BE BASED ON THE PRIMARY CLINICAL RECORDS. [facility] [employer] provides no warranty or guarantee of the accuracy or completeness of information in this document.
[2024-06-06 09:59] LABS: Basophils Percent Auto 0.4 % (0.2-2.0); Eosinophils Absolute Auto 0.2 10^3/uL (0.0-0.7); Eosinophils Percent Auto 3.3 % (0.9-7.0); Hematocrit 40.8 % (42.0-54.0); Hemoglobin 14.4 g/dL (14.0-18.0); Immature Granulocytes Abs Auto 0.01 10^3/uL (0.00-0.03); Immature Granulocytes Pct Auto 0.2 % (0.0-0.5); Lymphocytes Absolute Auto 1.3 10^3/uL (1.2-3.8); Lymphocytes Percent Auto 24.3 % (20.5-60.0); Mean Corpuscular HGB Conc 35.3 g/dL (29.9-35.2); Mean Corpuscular Volume 90.7 fL (80.0-94.0); Mean Platelet Volume 10.4 fL (9.5-13.5); Monocytes Absolute Auto 0.4 10^3/uL (0.3-0.8); Monocytes Percent Auto 7.8 % (1.7-12.0); Neutrophils Absolute Auto 3.3 10^3/uL (1.4-6.5); Platelet Count 144 10^3/uL (150-450); Red Cell Distribution Width 11.9 % (11.0-15.0); White Blood Count 5.1 10^3/uL (4.0-11.0)
--- NOTE | 2024-06-06 10:00 | XR_ITS ---
[facility] [place] [id number] Patient Name: NIKI ROONEY MRN: [id number] date: 1980 Sex: M Assigned Patient Location: LAB Current Patient Location: Accession/Order Number: [id number] Exam Date: 06/06/2024 10:15 Report Date: 06/07/2024 07:25 At the request of: MICKI ARMSTRONG Procedure: XR lumbar spine 2-3V EXAMINATION: XR lumbar spine 2-3V HISTORY: Degeneration Lumbar Spin COMPARISON: No relevant comparison available. FINDINGS: BONES: Mild degenerative facet arthropathy L3-L4 through L5-S1. No fracture, spondylolisthesis, bone lesion. DISC SPACES: Moderate narrowing L3-L4, L4-L5. PARASPINOUS: Negative. No paraspinous abnormality is seen. OTHER: Negative. XR/XR lumbar spine 2-3V IMPRESSION: 1. Mild to moderate degenerative disc disease and mild degenerative facet arthropathy. Consider MRI for further evaluation. Electronically authenticated by: SAURAV VILLEDA Date: 06/07/2024 07:25
[2024-06-06 11:07] LABS: Estimated Average Glucose 108 mg/dL; Glycohemoglobin A1C 5.4 % (4.5-6.2)
[2024-06-06 11:08] LABS: Prostate Specific Antigen Scrn 0.77 ng/mL (<=4.00)
[2024-06-06 11:36] LABS: Free T4 1.16 ng/dL (0.76-1.46)
[2024-06-06 14:34] LABS: Alanine Aminotransferase 29 U/L (16-63); Albumin Globulin Ratio 1.2; Albumin Level 3.7 g/dL (3.4-5.0); Alkaline Phosphatase 46 U/L (46-116); Anion Gap 9.1; Aspartate Amino Transferase 22 U/L (15-37); BUN Creatinine Ratio 14.5; Bilirubin Direct 0.1 mg/dL (0.0-0.2); Bilirubin Total 0.7 mg/dL (0.2-1.0); Calcium 8.8 mg/dL (8.5-10.1); Carbon Dioxide 33.6 mmol/L (21.0-32.0); Chloride 103 mmol/L (98-107); Cholesterol 145 mg/dL (<=200); Estimated GFR (African America >60 (>=60 mL/min/1.73m^2); Estimated GFR (Non-African Ame 59 (>=60 mL/min/1.73m^2); Globulin 3.1 g/dL; Glucose 126 mg/dL (74-106); HDL Cholesterol 49 mg/dL (40-60); Magnesium 1.9 mg/dL (1.8-2.4); Potassium 3.7 mmol/L (3.5-5.1); Sodium 142 mmol/L (136-145); Thyroid Stimulating Hormone 2.328 uIU/mL (0.358-3.740); Total Protein 6.8 g/dL (6.4-8.2); Triglycerides 90 mg/dL (<=150)
== END 2024-06-06 09:28 | disposition home or self-care (01) ==
LOC: LAB 09:27
PROVIDERS: PCP Family Medicine; Visit Provider Family Medicine
DX: Z00.00 Encounter for general adult medical examination without abnormal findings (principal); E03.9 Hypothyroidism, unspecified; M51.362 Other intervertebral disc degeneration, lumbar region with discogenic back pain and lower extremity pain; M51.369 Other intervertebral disc degeneration, lumbar region without mention of lumbar back pain or lower extremity pain
CPT/HCPCS: 36415; 72100; 80048; 80061; 80076; 83036; 83735; 84439; 84443; 85025; G0103